=== PATIENT | female | born 1980 | race Caucasian/White ===

== ENCOUNTER 2020-05-10 11:59 | Emergency (ER) | payer OTHER, MEDICAID ==
[~2020-05-10] VITALS: Ht 162.6 cm; Wt 63.5 kg
[2020-05-10 12:13] VITALS: BP 118/84
[2020-05-10] MEDS ORDERED: LEVO-T50 MCG PO (12:18)
[2020-05-10] MEDS ORDERED: METOPROLOL SUCC50 MG PO (12:18)
[2020-05-10] MEDS ORDERED: EFFER-K 10 MEQ10 ME1 PO (12:18)
[2020-05-10] MEDS ORDERED: CALCIUM500 MG PO (12:19)
[2020-05-10] MEDS ORDERED: AUGMENTIN 875-1 EACH PO (12:43)
== END 2020-05-10 13:04 | disposition home or self-care (01) ==
LOC: M.ERS 11:59
DX: K13.0 Diseases of lips (principal); I10 Essential (primary) hypertension

== ENCOUNTER 2020-09-16 20:50 | Emergency (ER) | payer OTHER, MEDICAID ==
[~2020-09-16] VITALS: Ht 162.6 cm; Wt 71.7 kg
[~2020-09-16 20:50] MED LIST: AUGMENTIN 875-1 EACH PO; CALCIUM500 MG PO; EFFER-K 10 MEQ10 ME1 PO; LEVO-T50 MCG PO; METOPROLOL SUCC50 MG PO
[2020-09-16 23:46] LABS: URINE BILIRUBIN NEGATIVE (Negative); URINE BLOOD TRACE (Negative); URINE CLARITY CLEAR; URINE COLOR YELLOW; URINE GLUCOSE-RANDOM NEGATIVE (Negative); URINE KETONES NEGATIVE (Negative); URINE LEUKOCYTES-REFLEX NEGATIVE (Negative); URINE NITRITE-REFLEX NEGATIVE (Negative); URINE PROTEIN NEGATIVE (Negative); URINE SPECIFIC GRAVITY 1.025 (1.005-1.030); URINE UROBILINOGEN 0.2 E.U./dl (0.2-1.0)
[2020-09-16 23:54] LABS: AMP/METHAMP Negative (Negative); BARBITURATES Negative (Negative); BENZODIAZEPINES POSITIVE (Negative); COCAINE Negative (Negative); METHADONE Negative (Negative); OPIATES POSITIVE (Negative); PCP Negative (Negative); THC POSITIVE (Negative)
[2020-09-17 03:50] VITALS: BP 113/69
--- NOTE | 2020-09-17 09:20 | EKG ---
[place] [address] ELECTROCARDIOGRAM REPORT Name: KWABENA QUEZADA Room: [facility]#: [id number] Admission: 09/16/20 Attend Phys: Discharge: 09/17/20 Date of : 82 Date of Service: 09/16/202156 Report #: [id number] THIS REPORT FOR: //name// [facility] ED Test Date: 2020-09-16 Test Time: 21:57:06 Pat Name: KWABENA QUEZADA Department: Room: Gender: [employer]: CRUZ : 1980 Requested By: Shabana Warner Order Number: [id number] MD: Cristian Mendez Measurements Intervals [place] Rate: 58 P: 2 CO: 164 QRS: 26 QRSD: 78 T: 30 QT: 445 QTc: 438 Interpretive Statements Sinus rhythm Low voltage, precordial leads Baseline wander in lead(s) V2 No previous ECG available for comparison Electronically Signed On 09-17-2020 9:19:49 CDT by Cristian Mendez [email or web address] <ELECTRONICALLY SIGNED> By: Cristian Mendez MD, FACC 09/17/20 0919 56 56 Cristian Mendez MD, [facility] /EPI
== END 2020-09-17 03:50 | disposition home or self-care (01) ==
LOC: M.ERS 20:50
PROVIDERS: Personal Emergency Response Attendant
DX: R55 Syncope and collapse (principal); I10 Essential (primary) hypertension; F17.210 Nicotine dependence, cigarettes, uncomplicated; Z79.899 Other long term (current) drug therapy